=== PATIENT | male | born 1995 | race Caucasian/White ===

== ENCOUNTER 2020-05-03 13:25 | Emergency (ER) | payer BC, MEDICAID ==
[~2020-05-03] VITALS: Ht 188 cm; Wt 90.0 kg
[2020-05-03 13:31] VITALS: BP 131/69
== END 2020-05-03 14:26 | disposition home or self-care (01) ==
LOC: ER 13:25
DX: J06.9 Acute upper respiratory infection, unspecified (principal); R07.81 Pleurodynia; R53.1 Weakness; R05 Cough; R06.02 Shortness of breath; R19.7 Diarrhea, unspecified; R51.9 Headache, unspecified; Z20.828 Contact with and (suspected) exposure to other viral communicable diseases; F17.200 Nicotine dependence, unspecified, uncomplicated; F12.90 Cannabis use, unspecified, uncomplicated
CPT/HCPCS: 36415; 99282

== ENCOUNTER 2020-05-06 15:22 | Emergency (ER) | payer MEDICAID ==
[2020-05-06 15:23] VITALS: BP 125/78
== END 2020-05-06 16:18 | disposition home or self-care (01) ==
LOC: ER 15:23
DX: U07.1 COVID-19 (principal); J02.0 Streptococcal pharyngitis; F12.90 Cannabis use, unspecified, uncomplicated
CPT/HCPCS: 87635; 99283; C9803